=== PATIENT | male | born 1965 | race Caucasian/White ===

== ENCOUNTER 2020-03-18 12:41 | Emergency (ER) | payer SELFPAY ==
[2020-03-18 12:43] VITALS: BP 187/100; PULSE 86; RESP 16; TEMP 36.8; O2SAT 100; BMI 30.7
--- NOTE | 2020-03-18 12:53 | [facility].EDWNDL ---
ED Disposition Clinical Impression: Abscess Disposition: Home, Self-Care Condition on Discharge: Good Instructions: Boil Prescriptions: clindamycin HCL [Clindamycin HCl 300mg Cap] 300 mg PO Q6 10 Days #40 cap Prescription Printed Referrals: Rubio Vizcaino [Primary Care Provider] - - Critical Care Critical Care Time: No Attestation: On , the high probability of a clinically significant, sudden or life threatening deterioration of the following system(s) required my full and direct attention, intervention and personal management. The time I documented below is in addition to time spent performing reported procedures but includes the following listed in this critical care notation. Medical Decision Making - Medical Records Medical records reviewed: Yes: I reviewed the patient's medical records. - Chris Inquiry Pt receiving controlled substance: No Wound/Laceration HPI - General Chief Complaint: Wound/Laceration Stated Complaint: possible spider bite right ankle Time Seen by Provider: 03/18/20 12:54 Source of Information: Patient - History of Present Illness HPI narrative: 54-year-old male presents with an abscess on his right ankle. He stated started about 2 weeks ago and progressively got worse until it ruptured today. He has some mild erythema around the lesion measuring about 2.3 x 3 cm. The patient denies any recent fever shakes or chills patient denies any other acute symptoms. Patient states minimal pain he has been scrubbing it with hot soapy water.Patient denies any recent cough or shortness of breath, patient denies any sore throat or headache, patient denies any loss of taste or smell, patient denies any malaise or fatigue, patient denies any abdominal pain nausea vomiting or diarrhea. - Related Data Previous Rx's Medication Instructions Recorded clindamycin HCL [Clindamycin HCl 300 mg PO Q6 10 Days #40 cap 03/18/20 300mg Cap] [facility] History - Hepatitis A Screen Attestation statement:: This patient has been screened for Hepatitis A risk factors. I have reviewed the patient's past medical history: Yes ROS Obtained: Yes All systems reviewed & no additional complaints - Constitutional Constitutional: Reports system reviewed and no additional complaints, except as docu - Eyes Eyes: Reports system reviewed and no additional complaints, except as docu - ENT Ears, Nose, Mouth, and Throat: Reports system reviewed and no additional complaints, except as docu - Cardiovascular Cardiovascular: Reports system reviewed and no additional complaints, except as docu - Respiratory Respiratory: Yes system reviewed and no additional complaints, except as docu - Gastrointestinal Gastrointestingal: Reports: system reviewed and no additional complaints, except as docu - Genitourinary Male Genitourinary: Reports system reviewed and no additional complaints, except as docu Female Genitourinary: Reports system reviewed and no additional complaints, except as docu - Musculoskeletal Musculoskeletal: Reports system reviewed and no additional complaints, except as docu - Integumentary/Breasts Skin/Breast: Reports system reviewed and no additional complaints, except as docu - Neurologic Neurologic: Reports system reviewed and no additional complaints, except as docu - Endocrine Endocrine: Reports system reviewed and no additional complaints, except as docu - Hematologic/Lymphatic Henatologic/Lymphatic: Reports system reviewed and no additional complaints, except as docu - Allergic/Immunologic Allergic/Immunologic: Reports system reviewed and no additional complaints, except as docu Physical Exam - General General appearance: alert, in no apparent distress - Head Head exam: atraumatic - Expanded Head Exam Head exam physical: Present: laceration - Eye Eye exam: Present: normal appearance - ENT ENT exam: Present: normal exam - Neck Neck exam: Present: normal i
[2020-03-18 13:16] VITALS: BP 180/90; PULSE 80; RESP 18; TEMP 36.8; O2SAT 99
== END 2020-03-18 13:49 | disposition home or self-care (01) ==
LOC: ER 13:44
PROVIDERS: Emergency Provider Family Medicine; PCP Family Medicine
DX: L02.415 Cutaneous abscess of right lower limb (principal)
CPT/HCPCS: 96372; 99281